=== PATIENT | female | born 1960 | race African-American/Black ===

== ENCOUNTER 2023-07-28 23:28 | Emergency (ER) | payer SELFPAY ==
[~2023-07-28] VITALS: Ht 157.5 cm; Wt 60.0 kg
[2023-07-28 23:30] VITALS: BP 133/63; PULSE 16; RESP 16; O2SAT 99
[2023-07-29] MEDS ORDERED: ACETAMINOPHEN 325MG TABLET PO ONE (00:15)
[2023-07-29] MEDS ORDERED: ACETAMINOPHEN 325MG TABLET PO NR (02:00)
[2023-07-29 02:06] VITALS: TEMP 98.5
== END 2023-07-29 10:20 | disposition home or self-care (01) ==
LOC: ER 23:28
DX: S00.93XA Contusion of unspecified part of head, initial encounter (principal); M54.9 Dorsalgia, unspecified; V99.XXXA Unspecified transport accident, initial encounter; Y93.89 Activity, other specified; Y92.89 Other specified places as the place of occurrence of the external cause; Y99.8 Other external cause status
CPT/HCPCS: 99284